=== PATIENT | male | born 1960 | race Caucasian/White ===

== ENCOUNTER 2021-08-25 19:08 | Emergency (ER) | payer MEDICAID, SELFPAY ==
--- NOTE | ~2021-08-25 | CT_ITS ---
EXAMINATION: CT HEAD WITHOUT CONTRAST CLINICAL INFORMATION: Left-sided weakness. COMPARISON: None TECHNIQUE: Contiguous axial imaging was performed from the skull base to vertex without intravenous administration of contrast. This CT examination was performed using dose optimization techniques as appropriate, variously including the following: *Automated exposure control *Adjustment of mA and/or kV according to patient size (this includes techniques or standardized protocols for targeted exams where dose is matched to indication/reason for exam; i.e. extremities or head) *Use of iterative reconstruction technique DLP: 901 mGy-cm FINDINGS: There is no evidence of acute intracranial hemorrhage or territorial infarction. No abnormal mass effect or midline shift is seen. Rodgers to white matter differentiation is well preserved. No extra-axial fluid collections are identified. There is generalized global volume loss. There is moderate prominence of the ventricles and the sulci . There is mild hypodensity of the periventricular white matter due to chronic small vessel ischemic disease. There are vascular calcifications of the internal carotid arteries bilaterally. The osseous structures and soft tissues are normal. The mastoid air cells and visualized portions of the paranasal sinuses are well aerated. CT/CT head/brain wo con IMPRESSION: No acute intracranial pathology.
[2021-08-25 19:24] VITALS: BP 149/75; BP 152/82; PULSE 8; PULSE 93; RESP 20; TEMP 36.9; O2SAT 93; O2SAT 95; BMI 27.3
--- NOTE | 2021-08-25 20:10 | ED.SEIZURE ---
HPI - Seizure General Chief Complaint: Seizure Stated Complaint: seizure Time Seen by Provider: 08/25/21 19:43 Source: patient and RN notes reviewed Mode of arrival: EMS Limitations: no limitations History of Present Illness HPI Narrative: 60-year-old who was brought to emergency department by ambulance for evaluation of witness seizure at his nursing facility. EMS reported that the patient had a seizure while he was sitting. He was given Ativan 0.5 mg IM. His seizure resolved and he was referred to the emergency department for further evaluation. The patient told me that he was here for a seizure but he does not recall the details of the seizure. He states that he is feeling well except that he is thirsty. He denied headache, nausea, vomiting, chest pain, shortness of breath. The patient does have weakness of his left upper and lower extremity on my exam and he states that this is new. Related Data Allergies Allergy/AdvReac Type Severity Reaction Status Date / Time No Known Allergies Allergy Verified 08/25/21 20:21 Review of Systems Review of Systems: Yes all other systems are reviewed and are negative [facility] Past Medical History [facility] Narrative: Past medical history: Dementia with behavioral disturbances, Wernicke encephalopathy, seizures, traumatic brain injury, coronary disease, GERD, depression, anemia, dysphagia, alcohol use disorder in remission, tobacco use, general anxiety, insomnia, ataxic gait. Social history: The patient is a resident of the [facility] since 12/01/2020 Social History Social History Advance Directives: No Advance Directives Information Provided: Yes Physical Exam Vital Signs: Vital Signs: Last Vital Signs Temp 98.4 F 08/25/21 19:24 Pulse 100 08/25/21 23:24 Resp 18 08/25/21 23:24 BP 139/78 08/25/21 23:24 Pulse Ox 96 08/25/21 23:24 BMI result Body Mass Index 27.3 Const: General: cooperative and no acute distress Orientation/consciousness: oriented to person and oriented to place Limitations: no limitations HENMT: Head: Yes normal to inspection, Yes normocephalic and Yes atraumatic Ears: external ears normal General nose exam: Normal external nose present Face and sinus: Yes normal facial exam Mouth: Normal oral and palatal mucosa present Throat: Yes posterior oropharynx normal Eyes: General: appearance normal, both eyes and all related structures Pupils: Equal, round and reactive pupils present Neck: Neck: Yes normal visual inspection, Yes no lymphadenopathy, Yes trachea midline and Yes supple Chest: Chest palpation & inspection: normal inspection of the chest and normal palpation of entire chest wall Resp: Effort & Inspection: normal respiratory effort and able to speak in complete sentences Auscultation: clear to auscultation bilaterally Cardio: Rate: regular rate Rhythm: regular rhythm Heart sounds: S1 normal heart sound present, S2 normal heart sound present and no murmurs GI: Inspection: Yes normal to inspection Palpation (GI): Soft to palpation, nontender and no guarding Auscultation: normal bowel sounds : General: Yes no CVA tenderness Back/Spine/Pelvis: Back: no CVA tenderness Skin: General skin exam: no rashes or lesions noted Neuro: General: oriented to person and oriented to place Cranial nerves: Yes CN's II-XII intact bilaterally and Yes Equal, round and reactive pupils present Cognition (Neuro): normal cognition Motor exam (neuro): strength not 5/5 throughout (Unable to hold his left arm and left leg up against gravity) Extrem: General: Yes normal to inspection Psych: Appearance: grossly normal Speech and movement: Normal speech and movement present Affect: normal affect Attitude: cooperative Thought process: Normal thought process present Thought content: Normal thought content present NIH Stroke Scale Internal: Initial- Upon Arrival Level of Consciousness: Alert Level of Consciousness Questions: Answers both questions correctly Level of Consciousness Commands: Performs both tasks correctly Best Gaze: Normal Visual: No visual loss Facial Palsy: Normal Motor Arm (Right): No drift Motor Arm (Left): No effort against gravity Motor Leg (Right): No drift Motor Leg (Left): Some effort against gravity Limb Ataxia: Absent Sensory: Normal Best Language: No aphasia Dysarthia: Normal Extinction and Inattention: No abnormality Score: 5 Course Course Course Narrative: 60-year-old male with a known seizure disorder who had a witnessed seizure while he was sitting in a chair at his nursing facility. He was given Ativan 0.5 mg IM. By the time the patient arrived in the emergency department he was back to his normal mental status. Vital signs revealed an elevated blood pressure of 149/75 otherwise were unremarkable. On my examination The patient is awake and alert, he is able to drink fluids without any difficulty, patient had no movement of his left upper extremity against gravity and only minimal movement of his left lower extremity against gravity. His NIH stroke scale was 5. The patient did have a seizure prior to coming to the emergency department and has a known seizure disorder therefore tPA is contraindicated in this situation. The patient has left-sided weakness may be secondary to Nino's paralysis. I did order a CBC, CMP, PT/INR, PTT, troponin, EKG, CT scan of the brain. 0002: Laboratory evaluation: Mild anemia with an H&H of 10.7 and 34.2. Glucose was elevated 156. Urinalysis was negative. COVID-[address] scan of the brain revealed no acute pathology. The patient is now able to move his left arm so suspect that his weakness was initially related to Nino's paralysis secondary to his seizure. The patient will be discharged back to his care facility. MDM - Seizure Lab Data Result diagrams: 08/25/21 21:43 08/25/21 21:43 Labs: Lab Results 08/25/21 08/25/21 08/25/21 Range/Units 21:07 21:08 21:43 WBC 9.2 (4.8-10.8) X10*3/uL RBC 3.91 L (4.60-5.80) X10*6/uL Hgb 10.7 L (14.0-18.0) g/dl Hct 34.2 L (42.0-52.0) % MCV 87.5 (80.0-98.0) fL MCH 27.4 (27.0-33.0) pg MCHC 31.3 (31.0-36.0) g/dl RDW 14.5 (11.0-16.0) % Plt Count 315 (160-400) X10*3/uL MPV 9.7 (9.4-12.4) fL Immature Gran % (Auto) 0.3 (0.0-0.4) % Neut % (Auto) 77.0 H (45-73) % Lymph % (Auto) 14.9 L (20-40) % [place] % (Auto) 7.1 (2-11) % Eos % (Auto) 0.3 (0-4) % Baso % (Auto) 0.4 (0-2) % Lymph # (Auto) 1.4 (1.2-4.9) X10*3/uL [place] # (Auto) 0.7 (0.1-1.2) X10*3/uL Eos # (Auto) 0.0 (0.0-0.4) X10*3/uL Baso # (Auto) 0.0 (0.0-0.2) X10*3/uL Abs Immat Gran (auto) 0.03 (0.00-0.03) X10*3/uL Absolute Neuts (auto) 7.1 (2.0-8.3) x10*3/uL Absolute Nucleated RBC 0.000 (0.0-0.012) X10*3/uL Nucleated RBC % (auto) 0.0 (0.0-0.2) /100WBC PT (9.9-13.0) SEC INR (0.9-1.1) APTT (24.1-38.0) SEC Sodium (135-145) mmol/L Potassium (3.3-5.1) mmol/L Chloride (96-108) mmol/L Carbon Dioxide (22-29) mmol/L Anion Gap (12-20) BUN (9-16) mg/dL Creatinine (0.5-1.4) mg/dL Estim Creat Clear Calc Estimated GFR Random Glucose (60-115) mg/dL Calcium (8.4-10.2) mg/dL Total Bilirubin (0.0-1.0) mg/dL AST (5-37) U/L ALT (0-40) U/L Alkaline Phosphatase (39-117) U/L Troponin I High Sens (<3.5-35.0) ng/L Total Protein (6.5-8.0) g/dL Albumin (3.5-5.0) g/dL Lipase (8-78) U/L Urine Color YELLOW Urine Appearance CLEAR Urine pH 7.0 (5.0-8.0) Ur Specific [place] 1.015 (1.005-1.025) Urine Protein NEG (NEG-TRACE) MG/DL Urine Glucose (UA) NEG (NEG) MG/DL Urine Ketones 5 (NEG) MG/DL Urine Blood NEG (NEG) Urine Nitrite NEG (NEG) Ur Leukocyte Esterase NEG (NEG) COVID-19 (JONI) Negative (Negative) COVID-19 Clin Com See Note 08/25/21 08/25/21 08/25/21 Range/Units 21:43 21:43 21:43 WBC (4.8-10.8) X10*3/uL RBC (4.60-5.80) X10*6/uL Hgb (14.0-18.0) g/dl Hct (42.0-52.0) % MCV (80.0-98.0) fL MCH (27.0-33.0) pg MCHC (31.0-36.0) g/dl RDW (11.0-16.0) % Plt Count (160-400) X10*3/uL MPV (9.4-12.4) fL Immature Gran % (Auto) (0.0-0.4) % Neut % (Auto) (45-73) % Lymph % (Auto) (20-40) % [place] % (Auto) (2-11) % Eos % (Auto) (0-4) % Baso % (Auto) (0-2) % Lymph # (Auto) (1.2-4.9) X10*3/uL [place] # (Auto) (0.1-1.2) X10*3/uL Eos # (Auto) (0.0-0.4) X10*3/uL Baso # (Auto) (0.0-0.2) X10*3/uL Abs Immat Gran (auto) (0.00-0.03) X10*3/uL Absolute Neuts (auto) (2.0-8.3) x10*3/uL Absolute Nucleated RBC (0.0-0.012) X10*3/uL Nucleated RBC % (auto) (0.0-0.2) /100WBC PT 12.1 (9.9-13.0) SEC INR 1.1 (0.9-1.1) APTT 32.7 (24.1-38.0) SEC Sodium 137 (135-145) mmol/L Potassium 3.7 (3.3-5.1) mmol/L Chloride 104 (96-108) mmol/L Carbon Dioxide 26 (22-29) mmol/L Anion Gap 11 L (12-20) BUN 6 L (9-16) mg/dL Creatinine 0.76 (0.5-1.4) mg/dL Estim Creat Clear Calc 98.7 Estimated GFR > 60 Random Glucose 156 H (60-115) mg/dL Calcium 9.0 (8.4-10.2) mg/dL Total Bilirubin 0.3 (0.0-1.0) mg/dL AST 16 (5-37) U/L ALT 13 (0-40) U/L Alkaline Phosphatase 103 (39-117) U/L Troponin I High Sens 4.3 (<3.5-35.0) ng/L Total Protein 7.3 (6.5-8.0) g/dL Albumin 4.1 (3.5-5.0) g/dL Lipase 11 (8-78) U/L Urine Color Urine Appearance Urine pH (5.0-8.0) Ur Specific [place] (1.005-1.025) Urine Protein (NEG-TRACE) MG/DL Urine Glucose (UA) (NEG) MG/DL Urine Ketones (NEG) MG/DL Urine Blood (NEG) Urine Nitrite (NEG) Ur Leukocyte Esterase (NEG) COVID-19 (JONI) (Negative) COVID-19 Clin Com Discharge Plan Discharge Clinical Impression: Nino's paralysis (postepileptic) Epileptic seizure Qualifiers: Epilepsy type: unspecified Intractability: not intractable Status epilepticus: without status epilepticus Qualified Code(s): G40.909 - Epilepsy, unspecified, not intractable, without status epilepticus Patient Disposition: Home, Self-Care Additional Instructions: Your blood work was unremarkable. The CT scan of your brain did not reveal any acute abnormality. You do have chronic changes in your brain which have been seen in the past on previous CT scans. Your initially had weakness of your left arm and left leg but this is resolved. This is consistent with Nino's paralysis which happens after seizures. You need to continue taking your seizure medications as prescribed by your providers. Follow-up with your doctor in 2 days. Please return to the emergency department if your symptoms get worse or if you develop any symptoms that are concerning to you.
--- NOTE | 2021-08-25 20:26 | ECG_ITS ---
Test Reason : siezure Blood Pressure : / mmHG Vent. Rate : 089 BPM Atrial Rate : 089 BPM P-R Int : 174 ms QRS Dur : 088 ms QT Int : 368 ms P-R-T Axes : 078 059 085 degrees QTc Int : 447 ms Poor data quality, interpretation may be adversely affected Normal sinus rhythm Normal ECG No previous ECGs available Referred By: Derrick Rios Electronically Signed By:Dudley Jansen
[2021-08-25 21:16] LABS: Appearance Urine CLEAR; Color Urine YELLOW; Glucose Urine UA NEG (NEG); Leukocyte Esterase Urine NEG (NEG); Nitrite Urine NEG (NEG); Specific Gravity - Urine 1.015 (1.005-1.025); Urine Blood NEG (NEG); Urine Ketones 5 MG/DL (NEG); Urine Protein NEG (NEG-TRACE)
[2021-08-25 21:28] LABS: COVID-19 Test Negative (Negative)
[2021-08-25 21:49] LABS: MANUAL DIFF FLAG NO
[2021-08-25 21:50] LABS: Basophils Percent Auto 0.4 % (0-2); Eosinophils Percent Auto 0.3 % (0-4); Hematocrit 34.2 % (42.0-52.0); Hemoglobin 10.7 g/dl (14.0-18.0); Imm Gran Abs Auto 0.03 X10*3/uL (0.00-0.03); Imm Gran Pct Auto 0.3 % (0.0-0.4); Lymphocytes Absolute Auto 1.4 X10*3/uL (1.2-4.9); Lymphocytes Percent Auto 14.9 % (20-40); Mean Corpuscular HGB Conc 31.3 g/dl (31.0-36.0); Mean Corpuscular Hemoglobin 27.4 pg (27.0-33.0); Mean Corpuscular Volume 87.5 fL (80.0-98.0); Mean Platelet Volume 9.7 fL (9.4-12.4); Monocytes Absolute Auto 0.7 X10*3/uL (0.1-1.2); Monocytes Percent Auto 7.1 % (2-11); Neutrophils Absolute Auto 7.1 x10*3/uL (2.0-8.3); Platelet Count 315 X10*3/uL (160-400); Red Blood Count 3.91 X10*6/uL (4.60-5.80); Red Cell Distribution Width 14.5 % (11.0-16.0); White Blood Count 9.2 X10*3/uL (4.8-10.8)
[2021-08-25 21:55] LABS: INTERNATIONAL NORM RATIO 1.1 (0.9-1.1); Prothrombin Time 12.1 SEC (9.9-13.0)
[2021-08-25 21:58] LABS: Partial Thromboplastin Time 32.7 SEC (24.1-38.0)
[2021-08-25 22:08] LABS: Alanine Aminotransferase 13 U/L (0-40); Albumin Level 4.1 g/dL (3.5-5.0); Alkaline Phosphatase 103 U/L (39-117); Anion Gap 11 (12-20); Aspartate Amino Transferase 16 U/L (5-37); Bilirubin Total 0.3 mg/dL (0.0-1.0); Blood Urea Nitrogen 6 mg/dL (9-16); Carbon Dioxide 26 mmol/L (22-29); Chloride 104 mmol/L (96-108); Creatinine Clr Calc Pharmacy 98.7; Estimated Glomerular Filt Rate > 60; Glucose Random 156 mg/dL (60-115); Lipase 11 U/L (8-78); Potassium 3.7 mmol/L (3.3-5.1); Sodium 137 mmol/L (135-145); Total Protein 7.3 g/dL (6.5-8.0)
[2021-08-25 22:14] LABS: Troponin-I High Sensitivity 4.3 ng/L (<3.5-35.0)
[2021-08-25 22:30] VITALS: BP 144/79; PULSE 80; RESP 16; O2SAT 96
[2021-08-25 23:24] VITALS: BP 139/78; PULSE 100; RESP 18; O2SAT 96
[2021-08-26] MEDS: Acetaminophen 325 MG TABLET 975 MG PO (00:47)
== END 2021-08-26 01:00 | disposition home or self-care (01) ==
PROVIDERS: Emergency Provider Emergency Medicine Emergency Medical Services
DX: G83.84 Todd's paralysis (postepileptic) (principal); G40.909 Epilepsy, unspecified, not intractable, without status epilepticus; R53.1 Weakness; D64.9 Anemia, unspecified; R29.705 NIHSS score 5; F03.91 Unspecified dementia, unspecified severity, with behavioral disturbance; E51.2 Wernicke's encephalopathy; Z87.820 Personal history of traumatic brain injury; Z20.822 Contact with and (suspected) exposure to COVID-19
CPT/HCPCS: 36415; 70450; 80053; 81003; 83690; 84484; 85025; 85610; 85730; 87635; 93005; 99284

== ENCOUNTER 2025-01-23 11:02 | Emergency (ER) | payer MEDICARE, MEDICAID, SELFPAY ==
[2025-01-23] VITALS (8 sets, daily range): BP systolic 108–167; BP diastolic 46–75; PULSE 71–123; RESP 12–18; TEMP 36.5–37.3; O2SAT 92–99; BMI 28.2
--- NOTE | ~2025-01-23 | CT_ITS ---
EXAMINATION: CT HEAD WITHOUT IV CONTRAST HISTORY: seizure. TECHNIQUE: Unenhanced helical CT of the head was performed per standard departmental protocol. Coronal and sagittal reformats of the head were also evaluated. One or more of the following techniques was used for dose reduction: Automated exposure control, adjustment of the mA and/or kV according to patient size, use of iterative reconstruction technique. DLP: 1430 mGy-cm COMPARISON: Comparison is made with the prior examination dated 08/25/2021. FINDINGS: The examination is limited by patient motion. BRAIN: There is diffuse prominence of the ventricular system and cortical sulci, consistent with atrophy. Periventricular and subcortical white matter hypodensities are noted which are nonspecific, but often seen in the setting of small vessel ischemic disease. There is no mass effect or midline shift. No intra- or extra-axial fluid collections are identified. SINUSES: The visualized paranasal sinuses are clear. The mastoid air cells and middle ear cavities are well pneumatized. ORBITS: The visualized orbits are unremarkable. BONES/SOFT TISSUES: The extracranial soft tissues are unremarkable. The calvarium is intact. No suspicious lytic or sclerotic lesions. CT/CT head/brain wo IV con IMPRESSION: No acute intracranial abnormality. Electronically signed by: Harpal Watkins MD 01/23/2025 12:47 PM EDT
--- NOTE | 2025-01-23 11:15 | ED_ITS ---
HPI - Seizure General Chief Complaint: Seizure Stated Complaint: SZ/POST ICTAL,FROM [facility] PER EMS Time Seen by Provider: 01/23/25 11:05 Source: EMS Mode of arrival: EMS Limitations: altered mental status History of Present Illness ED Provider: HPI Narrative: This is a 64-year-old male coming from assisted type of setting he has history of epilepsy, on levetiracetam 1500 mg twice a day presented with tonic-clonic activity, approximately 30 minutes prior to arrival to emergency department, EMS was called to the scene and by the time they arrived he was already postictal and received 2 mg of IM Ativan by the staff. Point of care glucose was unremarkable, patient's oxygen was initially in the low 80s, blood pressure slightly hypotensive, patient is a limited historian upon arrival. There are no reports of trauma, there were no reports of drug or alcohol use, there were no reports of any focal findings by the staff or EMS. Paperwork from the facility reviewed, does not appear that he has had his levetiracetam dosages today. MD complaint: seizure Witnessed: Yes - by Other Trauma: No Seizure History: Yes Treatments prior to arrival: benzodiazepines Related Data Allergies Allergy/AdvReac Type Severity Reaction Status Date / Time No Known Allergies Allergy Verified 01/23/25 11:18 Review of Systems 2 Review of Systems: Yes Unobtainable due to mental status Constitutional: Constitutional: Reports as per [facility] Social History Social History Advance Directives: Yes Advance Directives Information Provided: No Advance Directives on File: No Do you have a plan to hurt others: No Plan Physical Exam 2 Vital Signs: Vital Signs: Last Vital Signs Temp 98.1 F 01/23/25 14:15 Pulse 86 01/23/25 14:15 Resp 14 01/23/25 14:15 BP 113/46 L 01/23/25 14:15 Pulse Ox 98 01/23/25 14:15 O2 Del Method Nasal Cannula 01/23/25 14:15 O2 Flow Rate 5 01/23/25 14:15 Oxygen Flow Rate 4 01/23/25 11:16 BMI result Body Mass Index 28.2 Const: Other: * Gen: ?Patient appears of stated age, he is postictal, lethargic but beginning to answer some questions and follows some commands * HEENT: Pupils 2 mm reactive bilaterally, he is exhibiting nystagmus bidirectional horizontal, edentulous mouth, without any blood in the airway * Neck: Supple, no LAD * CV: RRR, no obvious murmurs appreciated * Resp: ?No wheezing rales rhonchi no stridor moving air well * Abd: ?Bowel sounds are present, no tenderness no rebound no rigidity * MSK: Passive range of motion is full bilateral upper and lower extremities, active range of motion was not able to be tested initially due to his presentation * Skin: Warm, dry, intact, * Neuro: Eyes awake, confused, pupils reactive, no facial asymmetry, active range of motion exam of his limited due to patient's current state. Medications Administered Discontinued Medications Generic Name Dose Route Start Last Admin Trade Name Freq PRN Reason Stop Dose Admin Levetiracetam 1,000 mg in 100 mls @ 400 mls/hr 01/23/25 12:08 01/23/25 12:35 Keppra IV 01/23/25 12:22 Infused ONCE ONE Infusion Morphine Sulfate 2 mg 01/23/25 13:05 01/23/25 13:10 Morphine Sulfate 4 Mg/Ml Cartridge IVPUSH 01/23/25 13:06 2 mg ONCE ONE Administration Protocol Medical Decision Making Medical Decision Making MDM Narrative: Some of the considerations for workup as below, I am not active in this patient as a stroke protocol because he does have history of seizures, presenting with what appears to be postictal state, he was not hypoglycemic for EMS we will recheck it here, no obvious trauma reported, no reports of substance or drug use, seems like he may have not taken his levetiracetam and in the morning today, I plan to check his EKG make sure there are no QT prolongations and anticipate loading him with a levetiracetam, at least in the patient with well documented history of seizures in our system as well as facility system, did not feel involvement of neurologist also necessary to help the monitor manage this patient at this juncture. Disposition to be determined. 13:04 at this point patient is much more awake, and he was re-examined, he is moving his right side without any issues however he has weakness in his left upper extremity and left lower extremity, in 2020 he was seen here with a seizure and he have left-sided paralysis as well at that point it was most likely consistent with Nino's paralysis. I will run this by Neurology before escalating his care to CT with IV contrast and further stroke considerations. 1311: I spoke with neurologist Dr. Mckinney, we discussed this case and he did not feel that further stroke workup has also indicated, and patient would not be a candidate for TNK etc. so I am going to observe patient in the emergency department and if he does not improve we will admit him for seizure management. 14:33 patient re-evaluated, he is moving upper and lower extremities symmetrically, this is more consistent with Nino's paralysis, he otherwise had reassuring workup I will be discharging him back to his facility Differential Diagnosis Breakthrough seizure, medication noncompliance, alcohol withdrawal, polypharmacy, subarachnoid hemorrhage, stroke, ACS, dysrhythmia Admission/Observation Consideration of admission/observation: Escalation of care including admission/observation considered Consult Healthcare Provider Management of the patient was discussed with: [employer] (Dr. Mckinney) Lab Data MDM Lab Attestation statement: I reviewed the patient's lab results. 01/23/25 11:42 01/23/25 11:42 Labs: Lab Results 01/23/25 Range/Units 11:42 WBC 7.6 (4.8-10.8) X10*3/uL RBC 3.85 L (4.60-5.80) X10*6/uL Hgb 12.3 L (14.0-18.0) g/dl Hct 36.7 L (42.0-52.0) % MCV 95.3 (80.0-98.0) fL MCH 31.9 (27.0-33.0) pg MCHC 33.5 (31.0-36.0) g/dl RDW 12.5 (11.0-16.0) % Plt Count 272 (160-400) X10*3/uL MPV 9.3 L (9.4-12.4) fL Immature Gran % (Auto) 0.4 (0.0-0.4) % Neut % (Auto) 82.1 H (45-73) % Lymph % (Auto) 8.7 L (20-40) % [place] % (Auto) 7.9 (2-11) % Eos % (Auto) 0.4 (0-4) % Baso % (Auto) 0.5 (0-2) % Lymph # (Auto) 0.7 L (1.2-4.9) X10*3/uL [place] # (Auto) 0.6 (0.1-1.2) X10*3/uL Eos # (Auto) 0.0 (0.0-0.4) X10*3/uL Baso # (Auto) 0.0 (0.0-0.2) X10*3/uL Abs Immat Gran (auto) 0.03 (0.00-0.03) X10*3/uL Absolute Neuts (auto) 6.2 (2.0-8.3) x10*3/uL Absolute Nucleated RBC 0.000 (0.0-0.012) X10*3/uL Nucleated RBC % (auto) 0.0 (0.0-0.2) /100WBC Sodium 141 (135-145) mmol/L Potassium 3.5 (3.3-5.1) mmol/L Chloride 110 H (96-108) mmol/L Carbon Dioxide 23 (22-29) mmol/L Anion Gap 12 (12-20) BUN 7 L (9-16) mg/dL Creatinine 0.71 (0.5-1.4) mg/dL Estim Creat Clear Calc 106.1 Estimated GFR > 60 Random Glucose 130 H (60-115) mg/dL Calcium 8.5 (8.4-10.2) mg/dL Magnesium 1.9 (1.6-2.6) mg/dL Total Bilirubin 0.2 (0.0-1.0) mg/dL AST 26 (5-37) U/L ALT 21 (0-40) U/L Alkaline Phosphatase 113 (39-117) U/L Total Protein 6.8 (6.5-8.0) g/dL Albumin 4.1 (3.5-5.0) g/dL Lipase 16 (8-78) U/L Ethyl Alcohol < 10 mg/dL Independent Interpretation I performed an independent interpretation of an: EKG (106, no QTC prolongation, otherwise normal ECG without dysrhythmia, AV pranav blocks or ST-T changes to suspect underlying ACS, my independent interpretation) Radiology Impression Discussion of test interpretation with radiology: I have reviewed the radiologist's reading. Radiologist Impression: [id number] [place] [address] CT Scan Report Signed Patient: Wes Julien MR#: [id number] : 1960 Acct:[id number] Age/Sex: 60 / M ADM Date: 08/25/21 Loc: HO.ED Attending Dr: Ordering Physician: Derrick Rios MD Date of Service: 08/25/21 Procedure(s): CT head/brain wo con Accession Number(s): [id number] cc: Derrick Rios MD~ EXAMINATION: CT HEAD WITHOUT CONTRAST CLINICAL INFORMATION: Left-sided weakness. COMPARISON: None TECHNIQUE: Contiguous axial imaging was performed from the skull base to vertex without intravenous administration of contrast. This CT examination was performed using dose optimization techniques as appropriate, variously including the following: *Automated exposure control *Adjustment of mA and/or kV according to patient size (this includes techniques or standardized protocols for targeted exams where dose is matched to indication/reason for exam; i.e. extremities or head) *Use of iterative reconstruction technique DLP: 901 mGy-cm FINDINGS: There is no evidence of acute intracranial hemorrhage or territorial infarction. No abnormal mass effect or midline shift is seen. Rodgers to white matter differentiation is well preserved. No extra-axial fluid collections are identified. There is generalized global volume loss. There is moderate prominence of the ventricles and the sulci . There is mild hypodensity of the periventricular white matter due to chronic small vessel ischemic disease. There are vascular calcifications of the internal carotid arteries bilaterally. The osseous structures and soft tissues are normal. The mastoid air cells and visualized portions of the paranasal sinuses are well aerated. CT/CT head/brain wo con IMPRESSION: No acute intracranial pathology. Critical Care Time Critical Care Time Critical Care Time: Yes Total Critical Care Time: 60 Attestation: 01/23/25 Dixon Chen DO Time is exclusive of separately billable procedures. Time includes: direct patient care, patient reassessment, coordination of patient care, interpretation of data (laboratory data, pulse oximetry, arterial blood gases and chest xrays), review of patient's medical records, medical consultation and documentation of patient care. Procedures excluded from critical care time: central intravenous line placement and electrocardiography. Discharge Plan Discharge Clinical Impression: Epileptic seizure, Nino's paralysis Patient Disposition: Home, Self-Care Instructions: Epilepsy (ED) Additional Instructions: Patient evaluated with a seizure, I am not sure if he received his levetiracetam in the morning but he received a 1000 mg of IV levetiracetam in emergency department, he also had a CT of the brain for evaluation that was negative, initially he had weakness in the left side which improved, he has had this in the past this is called Nino's paralysis, at the time of discharge he was back at his neurologic baseline, please make sure to give him his regular scheduled dose of the levetiracetam, thereafter an appointment needs to be made with his neurologist to make sure that if he has we will continues to have breakthrough seizures his antiepileptic medications are adjusted appropriately. Print Language: Serbian
--- NOTE | 2025-01-23 11:16 | ECG_ITS ---
Test Reason : SEIZURE Blood Pressure : */* mmHG Vent. Rate : 106 BPM Atrial Rate : 106 BPM P-R Int : 162 ms QRS Dur : 82 ms QT Int : 350 ms P-R-T Axes : 84 32 77 degrees QTcB Int : 464 ms Sinus tachycardia with occasional Premature ventricular complexes Septal infarct , age undetermined Abnormal ECG When compared with ECG of 25-Aug-2021 21:48, Premature ventricular complexes are now Present Referred By: Dixon Chen Electronically Signed By: RADHA GUTHRIE MD
[2025-01-23 11:48] LABS: Basophils Percent Auto 0.5 % (0-2); Eosinophils Percent Auto 0.4 % (0-4); Hematocrit 36.7 % (42.0-52.0); Hemoglobin 12.3 g/dl (14.0-18.0); Imm Gran Abs Auto 0.03 X10*3/uL (0.00-0.03); Imm Gran Pct Auto 0.4 % (0.0-0.4); Lymphocytes Absolute Auto 0.7 X10*3/uL (1.2-4.9); Lymphocytes Percent Auto 8.7 % (20-40); MANUAL DIFF FLAG NO; Mean Corpuscular HGB Conc 33.5 g/dl (31.0-36.0); Mean Corpuscular Hemoglobin 31.9 pg (27.0-33.0); Mean Corpuscular Volume 95.3 fL (80.0-98.0); Mean Platelet Volume 9.3 fL (9.4-12.4); Monocytes Absolute Auto 0.6 X10*3/uL (0.1-1.2); Monocytes Percent Auto 7.9 % (2-11); Neutrophils Absolute Auto 6.2 x10*3/uL (2.0-8.3); Neutrophils Percent Auto 82.1 % (45-73); Platelet Count 272 X10*3/uL (160-400); Red Blood Count 3.85 X10*6/uL (4.60-5.80); Red Cell Distribution Width 12.5 % (11.0-16.0); White Blood Count 7.6 X10*3/uL (4.8-10.8)
--- NOTE | 2025-01-23 11:54 | PC.NURSE ---
Pt arrives to ED today via EMS from [facility] s/p reported seizure. Per EMS, [facility] staff witnessed seizure like activity x5 minutes and administered 2mg IM Ativan prior to EMS arrival. EMS states seizure was approx. 30 minutes prior to Pts arrival to [facility]. EMS reports Pt was been post-ictal during transport with noted L upper and lower limb weakness--L upper and lower extremity is notably flaccid on arrival. EMS reports that [facility] reports Pts baseline and A&Ox3 with full independence with ADLs. VSS upon arrival Pt is not alert or responsive at this time. ED provider at bedside for initial eval. Pt arrives with IV access to R hand by EMS.
[2025-01-23 12:10] LABS: Alanine Aminotransferase 21 U/L (0-40); Albumin Level 4.1 g/dL (3.5-5.0); Alkaline Phosphatase 113 U/L (39-117); Anion Gap 12 (12-20); Aspartate Amino Transferase 26 U/L (5-37); Bilirubin Total 0.2 mg/dL (0.0-1.0); Blood Urea Nitrogen 7 mg/dL (9-16); Calcium 8.5 mg/dL (8.4-10.2); Carbon Dioxide 23 mmol/L (22-29); Chloride 110 mmol/L (96-108); Creatinine Clr Calc Pharmacy 106.1; Estimated Glomerular Filt Rate > 60; Ethanol < 10 mg/dL; Glucose Random 130 mg/dL (60-115); Lipase 16 U/L (8-78); Magnesium 1.9 mg/dL (1.6-2.6); Potassium 3.5 mmol/L (3.3-5.1); Sodium 141 mmol/L (135-145); Total Protein 6.8 g/dL (6.5-8.0)
[2025-01-23] MEDS: levETIRAcetam in NaCl (iso-os) 1,000 MG/100 ML PIGGYBACK 400 MG IV (12:18)
--- OUTSIDE RECORDS SUMMARY | 2025-01-23 12:33 | XMS_ITS | Clinical Summary ---
Author Organization Formerly [facility] Address [address] [place] [id number] Care Team Providers Care Branch Service Representative Name Role Phone Hiro Pantoja MD Primary Care Provider [phone] Allergies Active Allergy Reactions Criticality Noted Date Comments Quetiapine Other (See Comments) 04/05/2024 Medications levETIRAcetam (Keppra) 500 MG tablet Take 3 tablets (1,500 mg total) by mouth 2 (two) times a day. 08/28/19 24 Active OLANZapine (ZyPREXA) 7.5 MG tablet Take 1 tablet (7.5 mg total) by mouth nightly. 08/26/20 23 Active topiramate (TOPAMAX) 50 MG tablet Take 3 tablets (150 mg total) by mouth 2 (two) times a day. 02/06/20 24 Active acetaminophen (TYLENOL) 500 MG tablet Take 2 tablets (1,000 mg total) by mouth 3 times daily (every 8 hours) as needed for mild pain. Active aspirin enteric coated (ECOTRIN LOW STRENGTH) 81 MG EC tablet Take 1 tablet (81 mg total) by mouth daily. Active atorvastatin (LIPITOR) 40 MG tablet Take 1 tablet (40 mg total) by mouth daily. Active bisacodyl (DULCOLAX) 10 MG suppository Insert 1 suppository (10 mg total) into the rectum daily. Active calcium carbonate (OS-VIRGIL) 1250 (500 Ca) MG tablet Take 1 tablet (1,250 mg total) by mouth daily. Active ferrous sulfate 325 (65 FE) MG tablet Take 1 tablet (325 mg total) by mouth daily. Take 2 hours before or 4 hours after acid reducers. Active sodium phosphates (FLEET) enema Insert 118 mL into the rectum once. Active FLUoxetine (PROzac) 20 MG tablet Take 1 tablet (20 mg total) by mouth daily. Active LORazepam (ATIVAN INTENSOL) 2 MG/ML concentrated solution Take 1 mL (2 mg total) by mouth as needed. Intramuscular as needed for seizure over 5 minutes Active melatonin 3 MG Tab tablet Take 1 tablet (3 mg total) by mouth nightly. Active cholecalciferol (CHOLECALCIFEROL ) 25 MCG (1000 UT) tablet Take 1 tablet (1,000 Units total) by mouth daily. Active magnesium hydroxide (MILK OF MAGNESIA) 400 mg/5 mL suspension Take 5 mL by mouth daily as needed for constipation. Active naloxone (NARCAN) 4 mg/0.1 mL Liquid nasal spray device 1 spray (4 mg total) by Alternating Nares route once. [place] contents (4mg) into one nostril once. May repeat every 2 to 3 minutes in alternating nostrils. Call 911 immediately after use. Active NALOXONE HCL NA 4 mg once as needed for opioid reversal. Intramuscularly as needed for suspected opiod overdose Active OLANZapine (ZyPREXA) 5 MG tablet Take 1 tablet (5 mg total) by mouth 2 (two) times a day in the morning and the early afternoon. Active phenytoin (DILANTIN) 50 MG tablet Chew 3 tablets (150 mg total) daily at the same time. Active phenytoin (DILANTIN) 50 MG tablet Chew 2 tablets (100 mg total) 2 (two) times a day. Active pramoxine-calami ne (CALAHIST) 1-8 % Lotion lotion Apply topically as needed. Active EPINEPHrine 0.3 mg/0.3 mL IJ auto-injection Inject 0.3 mL (0.3 mg total) into the thigh once as needed for allergic reaction. Active Active Problems Problem Noted Date Diagnosed Date Seizure disorder 11/29/2024 Encounters Date Type Department Care Team Description 01/17/2025 7:38 AM EDT - 01/17/2025 11:59 PM EDT Hospital Encounter [facility] [address] [place] [phone] Zack Ramos MD Discharge Disposition: Home or Self Care 01/17/2025 Travel 01/14/2025 7:32 AM EDT - 01/14/2025 11:59 PM EDT Hospital Encounter [facility] [address] [place] [address] [place] [phone] Gordon Wong MD Seizure disorder (HCC) Discharge Disposition: Home or Self Care 01/14/2025 Travel 12/16/2024 Telephone [facility] [place] [address] [place] [address] Gordon Wong MD Labs Only 11/29/2024 8:30 AM EDT Office Visit [facility] [place] [address] [place] [address] Gordon Wong MD Seizure disorder (HCC) (Primary Dx); Sensorimotor neuropathy; At high risk for osteoporosis 11/29/2024 Travel from Last 3 Months Social History Tobacco Use Types Packs/Day Years Used Date Smoking Tobacco: Every Day Cigarettes Smokeless Tobacco: Never Sex and Gender Information Value Date Recorded Sex Assigned at Male 04/05/2024 8:36 AM EDT Legal Sex Male 8:55 AM EDT Gender Identity Male 04/05/2024 8:36 AM EDT Sexual Orientation Other 04/05/2024 8: 36 AM EDT Last Filed Vital Signs Vital Sign Reading Time Taken Comments Blood Pressure 115/69 11/29/2024 8:28 AM EDT Pulse 87 11/29/2024 8:28 AM EDT Temperature - - Respiratory Rate - - Oxygen Saturation - - Inhaled Oxygen Concentration - - Weight 85.7 kg (189 lb) 11/29/2024 8:28 AM EDT Height - - Body Mass Index - - Plan of Treatment Health Maintenance Due Date Last Done Comments Hepatitis C Virus Screening 1960 HIV Screening 12/21/1972 DTaP/Tdap/Td Vaccines (1 - Tdap) 12/21/1978 Pneumococcal Vaccines 50+ (1 of 2 - PCV) 12/21/1978 Colonoscopy 12/21/2004 Zoster (Shingles) Vaccine (1 of 2) 12/21/2009 COVID-19 Vaccine (6 - season) 2024 08/29/2023, 01/13/2022, 06/16/2021, Additional history exists Abdominal Aortic Aneurysm (AAA) Screening 12/21/2024 Influenza Vaccine 03/28/2025 06/23/2022, 06/29/2021 RSV Vaccine 60 years and older and Patients (1 - 1-dose 75+ series) 12/21/2034 Hepatitis B Vaccines Aged Out No long er eligible based on patient's age to complete this topic Procedures Procedure Name Priority Date/Time Associated Diagnosis Comments EEG AMB (TAKE HOME) Routine 01/17/2025 10:44 AM E DT Seizure disorder (HCC) from Last 3 Months Results * EEG 72 HOURS- UNATTENDED (01/17/2025 10:44 AM EDT) us Gordon Wong MD NEUROLOGY ORDERABLES Final Resu lt Performing Organization Address City/State/[facility] Co de Phone Number [facility] [phone] [place] [address], from Last 3 Months Insurance [facility] Care Teams Branch Service Representative Relationship Specialty Start Date End Date Hiro Pantoja MD [address] [place] [id number] PCP - General Internal Medicine 01/02/24
[2025-01-23] MEDS: Morphine Sulfate 4 MG/ML CARTRIDGE 2 MG IVPUSH (13:10)
[2025-01-23 16:44] LABS: Amphetamine Screen Urine Not Detected (Not Detect); Barbiturates, Urine Not Detected (Not Detect); Benzodiazepines Screen Urine Not Detected (Not Detect); Buprenorphine Scr Not Detected (Not Detect); Cannabinoid Screen Urine Not Detected (Not Detect); Cocaine Screen Urine Not Detected (Not Detect); Fentanyl, urine Not Detected (Not Detect); Methadone Screen, Urine Not Detected (Not Detect); Opiate Screen Urine POSITIVE (Not Detect); Oxycodone Screen Urine Not Detected (Not Detect); Phencyclidine Screen Urine Not Detected (Not Detect)
--- NOTE | 2025-01-23 17:02 | PC.NURSE ---
Addendum entered by Kari Carrillo RN 01/23/25 17:52: Follow up call placed to [facility] Spoke with LUCÍA Haney. RN to RN report completed. Awaiting ambulance for transport. Original Note: This RN attempted to call [facility] for RN to RN report. Call was transferred to Pts unit then ended after ringing several times. Will attempt to call again.
[2025-01-26 00:29] LABS: Levetiracetam Keppra 43.4 mcg/mL (6.0-46.0)
== END 2025-01-23 19:08 | disposition home or self-care (01) ==
PROVIDERS: Emergency Provider Emergency Medicine; PCP Emergency Medicine
DX: G83.84 Todd's paralysis (postepileptic) (principal); R56.9 Unspecified convulsions; R41.82 Altered mental status, unspecified; R00.0 Tachycardia, unspecified; Z79.899 Other long term (current) drug therapy; Z51.81 Encounter for therapeutic drug level monitoring
CPT/HCPCS: 36415; 70450; 80053; 80177; 80307; 83690; 83735; 84146; 85025; 93005; 96374; 96375; 99284; 99285; J1953; J2270

== ENCOUNTER → 2025-01-23 11:16 | Outpatient (BNV) | payer MEDICARE, MEDICAID, SELFPAY | PROVIDERS: Emergency Provider Emergency Medicine; PCP Emergency Medicine; Visit Provider Internal Medicine Cardiovascular Disease | DX: I49.3 Ventricular premature depolarization (principal); R00.0 Tachycardia, unspecified | CPT/HCPCS: 93010 ==

== ENCOUNTER → 2025-01-23 11:17 | Outpatient (BNV) | payer MEDICARE, MEDICAID, SELFPAY | PROVIDERS: Emergency Provider Emergency Medicine; PCP Emergency Medicine; Visit Provider Radiology Diagnostic Radiology | DX: G40.909 Epilepsy, unspecified, not intractable, without status epilepticus (principal) | CPT/HCPCS: 70450 ==